=== PATIENT | male | born 1960 | race Caucasian/White ===

== ENCOUNTER 2016-11-01 03:02 | Emergency (ER) | payer OTHER ==
[2016-11-01] MEDS ORDERED: Sodium Chloride 0.9% 1,000 ML IV ONE (03:05)
[2016-11-01] MEDS ORDERED: Metoprolol Tartrate 5 MG/5 ML SDV IVPUSH ONE (03:05)
[2016-11-01] MEDS ORDERED: Clopidogrel 75 MG Tab PO ONE (03:05)
[2016-11-01] MEDS ORDERED: Tenecteplase 50 MG Kit IV STA (03:07)
[2016-11-01] MEDS ORDERED: Morphine 10 MG/ML Syringe IV ONE (03:13)
[2016-11-01] MEDS ORDERED: Heparin Sodium 5,000 Units/ML Vial IVPUSH ONE (03:17)
[2016-11-01 03:33] LABS: CHLORIDE,CL 110 mmol/L (98-110); SODIUM,NA 143 mmol/L (136-146)
--- NOTE | 2016-11-01 03:38 | EDM.PDOC ---
ED HPI GENERAL MEDICAL PROBLEM - General Chief Complaint: Chest Pain Stated Complaint: AMBULANCE Time Seen by Provider: 11/01/16 03:35 Source of Information: Reports: Patient - History of Present Illness INITIAL COMMENTS - FREE TEXT/NARRATIVE: 56-year-old gentleman presents via ambulance Patient complained initially of 10 out of 10 chest pain radiating to left arm, ambulance had provided 4 baby aspirin and 2 mg morphine, with improvement of pain currently 3/10 Patient received 2 of morphine, Plavix 300 mg, TNKase 50 mg, heparin bolus followed by drip 1 L normal saline bolus History of dyslipidemia and smoking Vital stable and afebrile HEENT NCAT PERRLA EOMI nares patent oropharynx clear neck supple no meningeal sign Chest clear throughout CV regular in rhythm Abdomen soft nontender nondistended bowel sounds in all 4 quadrants Extremities four-inch motion strength 5 out of 5 no edema [employer]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, EKG, Nitroglycerin, Oxygen chest Pain Score (Numeric/FACES): 4 - Related Data Allergies Allergy/AdvReac Type Severity Reaction Status Date / Time No Known Allergies Allergy Verified 11/01/16 03:07 Home Meds: Home Meds High Cholesterol Medication 11/01/16 [History] Levothyroxine 150 mcg PO ACBREAKFAST 11/01/16 [History] Past Medical History HEENT History: Reports: None Cardiovascular History: Reports: High cholesterol Respiratory History: Reports: None Gastrointestinal History: Reports: None Genitourinary History: Reports: None Musculoskeletal History: Reports: None Neurological History: Reports: None Psychiatric History: Reports: None Endocrine/Metabolic History: Reports: Hypothyroidism Dermatologic History: Reports: None - Infectious Disease History Infectious Disease History: Reports: None - Past Surgical History HEENT Surgical History: Reports: None Male Surgical History: Reports: None Social & Family History - Family History Family Medical History: Noncontributory - Tobacco Use Smoking Status *Q: Current Every Day Smoker Years of Tobacco use: 40 Packs/Tins Daily: 0.5 - Recreational Drug Use Recreational Drug Use: No ED ROS GENERAL - Review of Systems Review Of Systems: ROS reveals no pertinent complaints other than HPI. ED EXAM, GENERAL - Physical Exam Exam: See Below Course - Vital Signs Last Recorded V/S: Last Vital Signs Temp 36.4 C 11/01/16 03:02 Pulse 66 11/01/16 03:11 Resp 20 11/01/16 03:02 BP 124/76 11/01/16 03:11 Pulse Ox 96 11/01/16 03:02 - Orders/Labs/Meds Orders: Active Orders 24 hr Category Date Time Status EKG Documentation Completion [RC] STAT Care 11/01/16 02:58 Active Chest 1V Frontal [CR] Stat Exams 11/01/16 03:12 Taken CKMB [CHEM] Stat Lab 11/01/16 03:09 Results COMPREHENSIVE METABOLIC PN,CMP [CHEM] Stat Lab 11/01/16 03:09 Results CREATINE KINASE,CK [CHEM] Stat Lab 11/01/16 03:09 Results INR,PT,PROTHROMBIN TIME [COAG] Stat Lab 11/01/16 03:09 Received UA W/MICROSCOPIC [URIN] Stat Lab 11/01/16 03:05 Uncollected Sodium Chloride 0.9% [Normal Saline] 1,000 ml Med 11/01/16 03:05 Active IV STAT Medication Orders Sodium Chloride (Normal Saline) 1,000 mls @ 999 mls/hr IV STAT ONE Stop: 11/01/16 04:05 Last Admin: 11/01/16 03:11 Dose: 999 mls/hr Labs: Laboratory Tests 11/01/16 11/01/16 11/01/16 Range/Units 03:09 03:09 03:09 WBC 13.74 H (4.0-11.0) K/uL RBC 4.89 (4.50-5.90) M/uL Hgb 13.9 (13.0-17.0) g/dL Hct 42.9 (38.0-50.0) % MCV 87.7 (80.0-98.0) fL MCH 28.4 (27.0-32.0) pg MCHC 32.4 (31.0-37.0) g/dL RDW Std Deviation 44.1 (28.0-62.0) fl RDW Coeff of Annie 14 (11.0-15.0) % Plt Count 306 (150-400) K/uL MPV 10.30 (7.40-12.00) fL Neut % (Auto) 73.7 (48.0-80.0) % Lymph % (Auto) 16.7 (16.0-40.0) % [place] % (Auto) 8.3 (0.0-15.0) % Eos % (Auto) 1.2 (0.0-7.0) % Baso % (Auto) 0.1 (0.0-1.5) % Neut # (Auto) 10.1 H (1.4-5.7) K/uL Lymph # (Auto) 2.3 (0.6-2.4) K/uL [place]wood # (Auto) 1.1 H (0.0-0.8) K/uL Eos # (Auto) 0.2 (0.0-0.7) K/uL Baso # (Auto) 0.0 (0.0-0.1) K/uL Nucleated RBC % 0.0 /100WBC Nucleated RBCs # 0 K/uL Sodium 143 (136-146) mmol/L Potassium 3.9 (3.5-5.1) mmol/L Chloride 110 (98-110) mmol/L Carbon Dioxide 19 L (21-31) mmol/L BUN 21 (6.0-23.0) mg/dL Creatinine 1.2 (0.6-1.5) mg/dL Est Cr Clr Drug Dosing 64.92 mL/min Estimated GFR (MDRD) > 60.0 ml/min Glucose 132 H (60-110) mg/dL Calcium 9.7 (8.8-10.8) mg/dL Total Bilirubin 0.2 (0.1-1.5) mg/dL AST 19 (5-40) IU/L ALT 20 (8-54) IU/L Alkaline Phosphatase 65 (40-150) Creatine Kinase 110 (9-236) IU/L Troponin I 0.21 (0.0-0.29) NG/ML Total Protein 7.1 (6.0-8.0) g/dL Albumin 4.1 (3.5-5.0) g/dL Globulin 3.0 (2.0-3.5) g/dL Albumin/Globulin Ratio 1.4 (1.3-2.8) Meds: Medications Generic Name Dose Route Start Last Admin Trade Name Freq PRN Reason Stop Dose Admin Sodium Chloride 1,000 mls @ 999 mls/hr 11/01/16 03:05 11/01/16 03:11 Normal Saline IV 11/01/16 04:05 999 mls/hr STAT ONE Administration Discontinued Medications Generic Name Dose Route Start Last Admin Trade Name Nereida PRN Reason Stop Dose Admin Clopidogrel Bisulfate 300 mg 11/01/16 03:05 11/01/16 03:15 Plavix PO 11/01/16 03:06 300 mg ONETIME ONE Administration Heparin Sodium (Porcine) 5,000 units 11/01/16 03:17 11/01/16 03:25 Heparin Sodium IVPUSH 11/01/16 03:18 5,000 units ONETIME ONE Administration Metoprolol Tartrate 5 mg 11/01/16 03:05 11/01/16 03:11 Lopressor IVPUSH 11/01/16 03:06 5 mg ONETIME ONE Administration Morphine Sulfate 2 mg 11/01/16 03:13 11/01/16 03:20 Morphine IV 11/01/16 03:14 2 mg ONETIME ONE Administration Tenecteplase 50 mg 11/01/16 03:07 Tnkase IV 11/01/16 03:08 NOW STA Protocol Departure - Departure Time of Disposition: 03:38 Disposition: Home, Self-Care 01 Condition: good Clinical Impression: Acute coronary syndrome Forms: ED Department Discharge - My Orders Last 24 Hours: My Active Orders 11/01/16 02:58 EKG Documentation Completion [RC] STAT 11/01/16 03:05 UA W/MICROSCOPIC [URIN] Stat Sodium Chloride 0.9% [Normal Saline] 1,000 ml IV STAT 11/01/16 03:09 CKMB [CHEM] Stat COMPREHENSIVE METABOLIC PN,CMP [CHEM] Stat CREATINE KINASE,CK [CHEM] Stat INR,PT,PROTHROMBIN TIME [COAG] Stat 11/01/16 03:12 Chest 1V Frontal [CR] Stat - Assessment/Plan Last 24 Hours: My Active Orders 11/01/16 02:58 EKG Documentation Completion [RC] STAT 11/01/16 03:05 UA W/MICROSCOPIC [URIN] Stat Sodium Chloride 0.9% [Normal Saline] 1,000 ml IV STAT 11/01/16 03:09 CKMB [CHEM] Stat COMPREHENSIVE METABOLIC PN,CMP [CHEM] Stat CREATINE KINASE,CK [CHEM] Stat INR,PT,PROTHROMBIN TIME [COAG] Stat 11/01/16 03:12 Chest 1V Frontal [CR] Stat
[2016-11-01] MEDS ORDERED: Nitroglycerin/D5W 25 MG/250 ML BOTTLE ONE (03:43)
[2016-11-01] MEDS ORDERED: Nitroglycerin/D5W 25 MG/250 ML BOTTLE IV SCH (03:45)
[2016-11-01] MEDS ORDERED: Heparin Sodium/D5W 25,000 UNITS/500 ML BAG IV SCH ×2 (03:45→04:00)
[2016-11-01] MEDS ORDERED: HYDROmorphone 2 MG/ML Syringe IVPUSH PRN (03:49)
[2016-11-01] MEDS ORDERED: Sodium Chloride 0.9% 1,000 ML IV SCH (04:15)
[2016-11-01 04:42] VITALS: BP 105/61
--- NOTE | 2016-11-01 10:58 | CR ---
EXAM DATE: 11/01/16 PATIENT'S AGE: 56 Patient: KAMAR HARDIN Facility: [place], [place] Site . Site : 1960 Study: XRay Chest [id number] 3:22:08 AM Ordering Physician: Azalia Wilson Final Report: Indication: Chest pain Technique: Chest 1 view Comparison: None Findings/Impression: Cardiovascular and mediastinum: Unremarkable cardiac size for a portable technique. Mild prominence of the right cardiac border. Lungs and pleural space: Lungs are clear. No sign of infiltrate or mass. No sign of pleural effusion. No pneumothorax. Bones and soft tissues: No significant findings. Dictated by Levy Negrete MD @ 11/01/2016 3:35:45 AM Dictated by: Levy Negrete MD @ 11/01/2016 03:35:52 (Electronic Signature) Report Signed by Proxy and Original Signed Document filed in the Medical Record. [facility]
== END 2016-11-01 04:38 ==
LOC: MW.ED 03:02
DX: I24.9 Acute ischemic heart disease, unspecified (principal); E78.00 Pure hypercholesterolemia, unspecified; E03.9 Hypothyroidism, unspecified; F17.210 Nicotine dependence, cigarettes, uncomplicated
CPT/HCPCS: 36415; 71010; 80053; 81001; 82550; 82553; 84484; 85025; 85610; 93005; 96361; 96365; 96368; 96375; 99285; A9270; J1170; J1644; J2270; J3101; J7040; 99284